=== PATIENT | male | born 1970 | race Two or more races ===

== ENCOUNTER 2024-05-14 01:09 | Inpatient (IN) | payer MEDICAID ==
[~2024-05-14] VITALS: Ht 172.7 cm; Wt 77.3 kg
[2024-05-14 01:42] LABS: APPEARANCE,URINE HAZY (CLEAR); BILIRUBIN,URINE NEGATIVE (NEGATIVE); COLOR,URINE YELLOW (YELLOW); GLUCOSE, URINE (UA) NEGATIVE (NEGATIVE); KETONES,URINE NEGATIVE (NEGATIVE); LEUKOCYTE ESTERASE ,URINE LARGE (NEGATIVE); NITRATE,URINE NEGATIVE (NEGATIVE); OCCULT BLOOD,URINE LARGE (NEGATIVE); PROTEIN,URINE 30-70 mg/dL (NEGATIVE); SPECIFIC GRAVITIY, URINE 1.019 (1.003-1.030); UROBILINOGEN,URINE <=1.0 mg/dL (<=1.0)
[2024-05-14 01:56] LABS: BACTERIA,URINE Many /HPF (None Seen); WBC,URINE 51-100 /HPF (0-5)
[2024-05-14 01:57] LABS: SQUAMOUS EPITHELIAL CELL,UR Rare /LPF (None Seen)
[2024-05-14] MEDS: 0.9% SODIUM CHLORIDE 10 ML SYRINGE IVP PRN (02:54)
[2024-05-14] MEDS: SODIUM CHLORIDE 0.9% 2,300 ML IV ONE (02:55)
[2024-05-14 03:04] LABS: HEMATOCRIT 39.1 % (41-53); HEMOGLOBIN 12.8 g/dL (13.5-17.5); MEAN CORPUSCULAR HEMOGLOBIN 27.4 pg (26.0-34.0); MEAN CORPUSCULAR HGB CONC 32.7 G/dL (31.0-37.0); MEAN CORPUSCULAR VOLUME 84 fL (80-100); PLATELET COUNT (AUTO) 264 K/uL (150-450); RED BLOOD CELL COUNT(AUTO) 4.67 MIL/uL (4.50-5.90); RED CELL DISTRIBUTION WIDTH 13.6 % (11.5-14.5); WHITE BLOOD COUNT (AUTO) 26.9 K/uL (4.5-11.0)
[2024-05-14 03:06] LABS: ANION GAP 11 mmol/L (8-16); BAND NEUTROPHILS % (MANUAL) 0 % (0-5); CALCIUM, TOTAL 8.8 mg/dL (8.8-10.5); CARBON DIOXIDE 26 mmol/L (22-29); CHLORIDE 98 mmol/L (98-107); CREATININE 0.91 mg/dL (0.60-1.30); GLOMERULAR FILTR. RATE CALC > 60 mL/min (>60); GLUCOSE,RANDOM 159 mg/dL (70-110); POTASSIUM 3.9 mmol/L (3.5-5.1); SODIUM SERUM 135 mmol/L (136-145); UREA NITROGEN, BLOOD 14 mg/dL (7-18)
[2024-05-14 03:07] LABS: PROTHROMBIN TIME 10.3 SEC (9.4-11.6)
[2024-05-14 03:11] LABS: ALANINE AMINOTRANSFERASE 36 U/L (12-78); ALBUMIN 3.5 g/dL (3.4-5.0); ALKALINE PHOSPHATASE 86 U/L (46-116); ASPARTATE AMINOTRANSFERASE 24 U/L (15-37); BILIRUBIN,TOTAL 0.4 mg/dL (0.1-1.0); TOTAL PROTEIN, SERUM 7.5 g/dL (6.4-8.2)
[2024-05-14] MEDS: HYDROmorphone HCL 2 MG/ML SYRINGE IVP ONE (03:17)
[2024-05-14] MEDS: CefTRIAXone 1 GM/DEXTROSE 50 ML IV ONE (03:17)
[2024-05-14] MEDS: ONDANSETRON HCL 4 MG/2 ML VIAL IVP ONE (03:17)
[2024-05-14] MEDS: ACETAMINOPHEN 500 MG TABLET PO ONE (03:19)
[2024-05-14 03:37] LABS: LYMPHOCYTES % (MANUAL) 4 % (22-44); MONOCYTES % (MANUAL) 4 % (2-9); SEGMENTED NEUTROPHILS % 92 % (40-70); TOTAL CELLS COUNTED 100
[2024-05-14 03:46] LABS: LACTIC ACID 3.3 mmol/L (0.4-2.0)
[2024-05-14] MEDS: GENTAMICIN SULFATE 160 MG in DEXTROSE 5%-WATER 100 ML IV ONE (04:29)
[2024-05-14 10:43] VITALS: BP 135/81; PULSE 135; RESP 19; TEMP 98.2; O2SAT 98
[2024-05-14] MEDS ORDERED: IPRATROPIUM BROMIDE 0.5 MG/2.5 ML NEB SOLUTION NEB PRN (12:45)
[2024-05-14] MEDS ORDERED: ALBUTEROL SULFATE 2.5 MG/0.5 ML NEB SOLUTION NEB PRN (12:45)
[2024-05-14] MEDS ORDERED: ZOLPIDEM TARTRATE 5 MG TABLET PO PRN (12:45)
[2024-05-14] MEDS ORDERED: HYDROCODONE/ACETAMINOPHEN 5-325 MG TABLET PO PRN (12:45)
[2024-05-14] MEDS ORDERED: BISACODYL 10 MG RECTAL RECTAL SUPPOSITORY PR PRN (12:45)
[2024-05-14] MEDS ORDERED: ONDANSETRON HCL 4 MG/2 ML VIAL IVP PRN (12:45)
[2024-05-14] MEDS: MORPHINE SULFATE 2 MG/ML SYRINGE IVP PRN (13:47)
[2024-05-14] MEDS: HEPARIN SODIUM,PORCINE 5,000 UNITS/ML VIAL SQ SCH (17:19)
[2024-05-14 20:02] VITALS: BP 136/76; PULSE 94; RESP 18; TEMP 101.4; O2SAT 97
[2024-05-14 20:30] VITALS: BP 136/76; PULSE 94; RESP 18; TEMP 101.4; O2SAT 97
[2024-05-14] MEDS: ACETAMINOPHEN 325 MG TABLET PO PRN (20:32)
[2024-05-14] MEDS ORDERED: SODIUM CHLORIDE 0.9% 500 ML IV ONE (20:56)
[2024-05-14 22:30] VITALS: BP 123/74; PULSE 87; RESP 19; TEMP 98.5; O2SAT 96
[2024-05-15] VITALS (7 sets, daily range): BP systolic 123–143; BP diastolic 66–85; PULSE 85–102; RESP 16–20; TEMP 98.2–100.6; O2SAT 96–97
[2024-05-15] MEDS: CefTRIAXone 1 GM/DEXTROSE 50 ML IV SCH (02:01)
[2024-05-15] MEDS: PANTOPRAZOLE SODIUM 40 MG DR TABLET PO SCH (09:06)
[2024-05-15 15:49] LABS: BASOPHILS % (AUTO) 0.3 % (0.0-2.0); EOSINOPHILS % (AUTO) 0.2 % (1.0-6.0); HEMATOCRIT 38.8 % (41-53); HEMOGLOBIN 12.5 g/dL (13.5-17.5); LYMPHOCYTES # (AUTO) 1.9 K/uL (1.0-4.8); LYMPHOCYTES % (AUTO) 9.5 % (22.0-44.0); MEAN CORPUSCULAR HEMOGLOBIN 27.3 pg (26.0-34.0); MEAN CORPUSCULAR HGB CONC 32.1 G/dL (31.0-37.0); MEAN CORPUSCULAR VOLUME 85 fL (80-100); MONOCYTES # (AUTO) 1.5 K/uL (0.1-1.0); MONOCYTES % (AUTO) 7.4 % (2.0-9.0); NEUTROPHILS # (AUTO) 16.5 K/uL (1.8-7.7); NEUTROPHILS % (AUTO) 82.6 % (40.0-70.0); PLATELET COUNT (AUTO) 289 K/uL (150-450); RED BLOOD CELL COUNT(AUTO) 4.56 MIL/uL (4.50-5.90); RED CELL DISTRIBUTION WIDTH 13.6 % (11.5-14.5)
[2024-05-15 15:58] LABS: ANION GAP 9 mmol/L (8-16); CALCIUM, TOTAL 8.6 mg/dL (8.8-10.5); CARBON DIOXIDE 27 mmol/L (22-29); CHLORIDE 99 mmol/L (98-107); CREATININE 0.71 mg/dL (0.60-1.30); GLOMERULAR FILTR. RATE CALC > 60 mL/min (>60); GLUCOSE,RANDOM 109 mg/dL (70-110); POTASSIUM 3.7 mmol/L (3.5-5.1); SODIUM SERUM 135 mmol/L (136-145); UREA NITROGEN, BLOOD 9 mg/dL (7-18)
[2024-05-15 16:04] LABS: ALANINE AMINOTRANSFERASE 47 U/L (12-78); ALBUMIN 3.1 g/dL (3.4-5.0); ALKALINE PHOSPHATASE 124 U/L (46-116); ASPARTATE AMINOTRANSFERASE 40 U/L (15-37); BILIRUBIN,TOTAL 0.5 mg/dL (0.1-1.0); TOTAL PROTEIN, SERUM 7.6 g/dL (6.4-8.2)
[2024-05-16] MEDS: MAGNESIUM HYDROXIDE SUSPENSION 30 ML UDCUP PO PRN (03:53)
[2024-05-16 04:00] VITALS: BP 116/60; PULSE 85; RESP 18; TEMP 99.3; O2SAT 97
[2024-05-16 04:52] VITALS: BP 114/75; PULSE 82; RESP 18; TEMP 99.4; O2SAT 96
[2024-05-16 06:52] LABS: BASOPHILS % (AUTO) 0.6 % (0.0-2.0); EOSINOPHILS % (AUTO) 0.4 % (1.0-6.0); HEMATOCRIT 36.5 % (41-53); HEMOGLOBIN 11.9 g/dL (13.5-17.5); LYMPHOCYTES % (AUTO) 11.8 % (22.0-44.0); MEAN CORPUSCULAR HEMOGLOBIN 27.8 pg (26.0-34.0); MEAN CORPUSCULAR HGB CONC 32.7 G/dL (31.0-37.0); MEAN CORPUSCULAR VOLUME 85 fL (80-100); MONOCYTES # (AUTO) 1.2 K/uL (0.1-1.0); MONOCYTES % (AUTO) 7.2 % (2.0-9.0); NEUTROPHILS # (AUTO) 13.6 K/uL (1.8-7.7); PLATELET COUNT (AUTO) 285 K/uL (150-450); RED CELL DISTRIBUTION WIDTH 13.7 % (11.5-14.5)
[2024-05-16 09:18] VITALS: BP 128/71; PULSE 75; RESP 18; TEMP 99.4; O2SAT 96
[2024-05-16 15:49] VITALS: BP 117/72; PULSE 77; RESP 18; TEMP 99.3; O2SAT 98
[2024-05-16 19:34] VITALS: BP 116/59; PULSE 81; RESP 18; TEMP 99.3; O2SAT 95
[2024-05-17 05:17] VITALS: BP 129/85; PULSE 72; RESP 18; TEMP 98.8; O2SAT 97
[2024-05-17 07:38] VITALS: BP 103/60; PULSE 64; RESP 18; TEMP 98.3; O2SAT 98
[2024-05-17 07:38] LABS: BASOPHILS % (AUTO) 0.4 % (0.0-2.0); EOSINOPHILS % (AUTO) 0.8 % (1.0-6.0); HEMATOCRIT 36.7 % (41-53); LYMPHOCYTES # (AUTO) 2.1 K/uL (1.0-4.8); LYMPHOCYTES % (AUTO) 23.6 % (22.0-44.0); MEAN CORPUSCULAR HEMOGLOBIN 27.8 pg (26.0-34.0); MEAN CORPUSCULAR HGB CONC 32.8 G/dL (31.0-37.0); MEAN CORPUSCULAR VOLUME 85 fL (80-100); MONOCYTES # (AUTO) 0.9 K/uL (0.1-1.0); MONOCYTES % (AUTO) 10.4 % (2.0-9.0); NEUTROPHILS # (AUTO) 5.9 K/uL (1.8-7.7); NEUTROPHILS % (AUTO) 64.8 % (40.0-70.0); PLATELET COUNT (AUTO) 331 K/uL (150-450); RED BLOOD CELL COUNT(AUTO) 4.33 MIL/uL (4.50-5.90); RED CELL DISTRIBUTION WIDTH 13.6 % (11.5-14.5); WHITE BLOOD COUNT (AUTO) 9.1 K/uL (4.5-11.0)
[2024-05-17 15:36] VITALS: BP 117/73; PULSE 63; RESP 18; TEMP 98.3; O2SAT 98
[2024-05-17 19:46] VITALS: BP 135/83; PULSE 74; RESP 20; TEMP 98; O2SAT 96
[2024-05-18 04:34] VITALS: BP 126/78; PULSE 60; RESP 18; TEMP 98.3; O2SAT 98
[2024-05-18 07:35] LABS: BASOPHILS % (AUTO) 1.7 % (0.0-2.0); EOSINOPHILS % (AUTO) 2.1 % (1.0-6.0); HEMATOCRIT 39.3 % (41-53); HEMOGLOBIN 12.8 g/dL (13.5-17.5); LYMPHOCYTES # (AUTO) 2.2 K/uL (1.0-4.8); LYMPHOCYTES % (AUTO) 35.2 % (22.0-44.0); MEAN CORPUSCULAR HEMOGLOBIN 27.7 pg (26.0-34.0); MEAN CORPUSCULAR HGB CONC 32.6 G/dL (31.0-37.0); MEAN CORPUSCULAR VOLUME 85 fL (80-100); MONOCYTES # (AUTO) 0.7 K/uL (0.1-1.0); MONOCYTES % (AUTO) 12.2 % (2.0-9.0); NEUTROPHILS % (AUTO) 48.8 % (40.0-70.0); PLATELET COUNT (AUTO) 365 K/uL (150-450); RED BLOOD CELL COUNT(AUTO) 4.62 MIL/uL (4.50-5.90); RED CELL DISTRIBUTION WIDTH 13.6 % (11.5-14.5); WHITE BLOOD COUNT (AUTO) 6.1 K/uL (4.5-11.0)
[2024-05-18 08:05] VITALS: BP 145/70; PULSE 62; RESP 19; TEMP 98.9; O2SAT 96
[2024-05-18] MEDS ORDERED: LEVO750T68 PO (09:08)
== END 2024-05-18 13:30 | disposition home or self-care (01) | DRG 720 ==
LOC: EMS 01:10 → EDH 09:07 → 6N 09:44 → 6S 05-15 07:29 → 4E 05-17 05:00
PROVIDERS: ADMIT Hospitalist; ATTEND Hospitalist
DX: A41.9 Sepsis, unspecified organism (principal); E88.09 Other disorders of plasma-protein metabolism, not elsewhere classified; N45.3 Epididymo-orchitis; I10 Essential (primary) hypertension; N30.00 Acute cystitis without hematuria; B96.20 Unspecified Escherichia coli [E. coli] as the cause of diseases classified elsewhere
CPT/HCPCS: 71045; 71250; 72192; 74150; 76870; 80053; 81001; 83605; 84145; 85025; 85610; 87040; 87086; 87186; 93005; 99285; G0378; J0696; J1170; J1580; J1644; J2270; J2405; J7040; J7060; 36415-L1; 36415-TC